=== PATIENT | male | born 1990 | race Caucasian/White ===

== ENCOUNTER 2017-01-24 05:48 | Emergency (ER) | payer OTHER ==
[2017-01-24] MEDS ORDERED: ONDANSETRON 4 MG/2 ML VIAL ONE (05:59)
[2017-01-24] MEDS ORDERED: fentaNYL 100 MCG/2 ML INJ ONE (06:02)
[2017-01-24] MEDS ORDERED: KETOROLAC 30 MG/1 ML SDV ONE (06:03)
[2017-01-24] MEDS ORDERED: NS 1,000 ML IV ONE (06:05)
[2017-01-24 06:11] VITALS: TEMP 97.5
[2017-01-24] MEDS ORDERED: KETOROLAC 30 MG/1 ML SDV IVP ONE (06:11)
[2017-01-24] MEDS ORDERED: fentaNYL 100 MCG/2 ML INJ IVP ONE (06:11)
--- NOTE | 2017-01-24 06:39 | EDPHY ---
H & P Stated Complaint: pain in the back Time Seen by Provider: 01/24/17 05:52 HPI/ROS: CHIEF COMPLAINT: awoke with left flank pain approximately 30 minutes ago HISTORY OF PRESENT ILLNESS: previously healthy otherwise stable 26-year-old male complains of pain upon awakening today at around 0 500. He was not Scheduled to wake up, but instead the pain that woke him up. Pain is intense, local ice left flank, radiates to the left iliac crest but not into the groin or the lower quadrant. He has never had pain like this before. Started at 5 o' clock when he woke up. Was feeling well when he went to bed last night. He has not had an opportunity to taking for the pain as he does not think he could keep it down. Affect is into the room he is dry heaving into the waist can. He does have a family history for kidney stones by way of his sister as well as mother. He has never needed any diagnostic testing prior. Furthermore, yesterday he did have some frequency of a mild nature but did not have any visible hematuria. Furthermore there was no fevers or chills or nausea or vomiting at that time and there was no sense of discomfort with urination per se. Pt queried and denies: prior hx of substance abuse ROS" Constitutional - no fevers or chills Eyes - no diplopia, blurred vision, or discharge ENT - no earache, change in hearing, difficulty swallowing, sore throat. Cardiovascular - no chest pain, shortness of breath, or difficulty breathing. Respiratory - No Shortness of breath, cough, phlegm, wheezing or pleuritic chest pain. GI - no nausea vomiting or diarrhea. There is no abdominal pain or distention. . - no dysuria or frequency. No hematuria or flank pain. No testicular pain or swelling. No discharge. Musculoskeletal - no joint or muscle pain. Though he does have pain in the left flank, it does not hurt to move. He does work and lifting capacity at [employer] but does not recall any injury. Source: Patient Exam Limitations: No limitations - Personal History Tetanus Vaccine Date: 2009 - Medical/Surgical History Hx Asthma: No Hx Chronic Respiratory Disease: No Hx Diabetes: No Hx Cardiac Disease: No Hx Renal Disease: No Hx Cirrhosis: No Hx Alcoholism: No Hx HIV/AIDS: No Hx Splenectomy or Spleen Trauma: No Other PMH: "none" - Social History Smoking Status: Never smoked Alcohol Use: None Drug Use: None - Physical Exam Exam: General Appearance: Alert, moderate distress as he is in pain, pale, and pasty colored. Afebrile. Normal phonation. No respiratory distress. Eyes: Pupils equal and round no pallor or injection. No icterus ENT, Mouth: Mucous membranes dry tongue Pharynx without erythema or exudate. TM Clear. Neck: No adenopathy. Supple. No JVD. Trachea in midline. Respiratory: There are no retractions, lungs are clear to auscultation. Cardiovascular: Regular rate and rhythm, no murmur Abdomen: Soft and nontender, no masses, bowel sounds normal. Genitalia: Normal external male post circumcision genitalia with descended testicles bilaterally without any scrotal swelling or tenderness or edema or erythema. No discharge. Neurological: Ox3. No motor weakness. Sensation intact. Gait nl. Skin: Warm and dry, no rashes. Musculoskeletal: No joint swelling. No pain with passive rotation of the trunk Extremities: No edema. Psychiatric: Normal affect. Patient is oriented X 3, there is no agitation Constitutional: Initial Vital Signs Temperature (C) 36.4 C 01/24/17 05:50 Heart Rate 74 01/24/17 05:50 Respiratory Rate 16 01/24/17 05:50 Blood Pressure 127/75 H 01/24/17 05:50 O2 Sat (%) 100 01/24/17 05:50 O2 Delivery Mode Room Air Allergies/Adverse Reactions: No Known Allergies Allergy (Verified 04/03/14 19:54) Home Medications: Medication Instructions Recorded None 08/16/11 Indomethacin [Indocin 25 mg (*)] 50 mg PO TID #30 cap 01/24/17 Ondansetron Odt [Zofran Odt 4 mg 4 mg PO Q4 PRN #10 tab 01/24/17 (*)] Oxycodone HCl 10 mg PO Q6H PRN #20 capsule 01/24/17 Tamsulosin HCl [Flomax 0.4 MG (*)] 0.4 mg PO DAILY #7 cap 01/24/17 Medical Decision Making ED Course/Re-evaluation: He was given injection of fentanyl 100 mcg IV, Zofran 4 mg IV as well as Toradol 30 mg IV. He had an excellent response his pain was mild thereafter KUB did not demonstrate stone as he was too much stool away Urinalysis compatible kidney stone as there is 3+ hematuria Differential Diagnosis: Differential diagnosis includes, but is not limited to: Gastroenteritis, dehydration, diverticulitis, hepatitis, pancreatitis, renal colic, kidney stones, ureterolithiasis, gastritis, mesenteric adenitis, food poisoning, bacterial dysentery. - Data Points Laboratory Results: 01/23/17 06:40 Urine Color YELLOW Urine Appearance CLEAR Urine pH 6.5 (5.0-7.5) Ur Specific Devine 1.025 (1.002-1.030) Urine Protein 1+ H (NEGATIVE) Urine Ketones 1+ H (NEGATIVE) Urine Blood 3+ H (NEGATIVE) Urine Nitrate NEGATIVE (NEGATIVE) Urine Bilirubin Pending Urine Urobilinogen 1.0 EU EU (0.2-1.0) Ur Leukocyte Esterase NEGATIVE (NEGATIVE) Urine Glucose NEGATIVE (NEGATIVE) Medications Given: Discontinued Medications Fentanyl (Sublimaze) 100 mcg IVP EDNOW ONE Stop: 01/24/17 06:12 Last Admin: 01/24/17 06:05 Dose: 100 mcg Sodium Chloride (Ns) 1,000 mls @ 0 mls/hr IV ONCE ONE; Wide Open PRN Reason: Protocol Stop: 01/24/17 06:06 Last Admin: 01/24/17 06:05 Dose: 1,000 mls Ketorolac Tromethamine (Toradol) 30 mg IVP EDNOW ONE Stop: 01/24/17 06:12 Last Admin: 01/24/17 06:05 Dose: 30 mg Departure - Departure Disposition: Home, Routine, Self-Care Clinical Impression: Renal colic on left side Condition: Good Instructions: Renal Colic (ED) Additional Instructions: Strain urine for the next week. If he do find his stone, has submitted to your family doctor for analysis. While the pain is under control, it is reasonable to be at home however, she developed fever or pain that is out of control than you need to return. The INDOCIN is to be taken 3 times daily for the next 5 days Zofran as needed for nausea Flomax so as to an approved the chance of passage of stone Pain management should be Tylenol or oxycodone. Referrals: Genaro Kwok MD [Medical Doctor] - As per Instructions Stand Alone Forms: Work Excuse Prescriptions: Indomethacin [Indocin 25 mg (*)] 50 mg PO TID #30 cap Ondansetron Odt [Zofran Odt 4 mg (*)] 4 mg PO Q4 PRN #10 tab PRN Reason: Dizziness Oxycodone HCl 10 mg PO Q6H PRN #20 capsule PRN Reason: pain Tamsulosin HCl [Flomax 0.4 MG (*)] 0.4 mg PO DAILY #7 cap
[2017-01-24 07:19] LABS: COLOR YELLOW; LEUKOCYTE ESTERASE,URINE NEGATIVE (NEGATIVE); NITRITE,URINE NEGATIVE (NEGATIVE); PH,URINE 6.5 (5.0-7.5)
[2017-01-24 07:34] LABS: MUCUS 3+ /lpf (NONE-1+); RBC,URINE >182 /hpf (0-3)
[2017-01-24 07:38] VITALS: BP 122/69; PULSE 53; RESP 18; O2SAT 96
== END 2017-01-24 07:38 | disposition home or self-care (01) ==
LOC: CED 05:48
DX: N23 Unspecified renal colic (principal)
CPT/HCPCS: 74000-PO; 81003-PO; 81015-PO; 96374; J1885; J2405; J3010